=== PATIENT | female | born 1975 | race Caucasian/White ===

== ENCOUNTER 2020-01-27 12:52 | Emergency (ER) | payer OTHER, SELFPAY ==
[2020-01-27 13:00] VITALS: BP 123/78; PULSE 68; RESP 16; TEMP 36.6; O2SAT 100
--- NOTE | 2020-01-27 13:19 | ED.GENADULT ---
HPI - General Adult General Chief complaint: Eye Problems Stated complaint: eye irritation Time Seen by Provider: 01/27/20 13:19 Source: patient and RN notes reviewed Mode of arrival: ambulatory Limitations: no limitations History of Present Illness HPI narrative: 44-year-old female presents with complains of eye pain, tearing, and sensation of foreign body in right eye for 1 day. Paulette says she awaken this morning with the sensation of foreign body and irritation to RT eye. She has been rubbing and trying to locate something unsuccessful. Irrigated eye with Visine and eyewash without relief. Mild redness. Symptoms worsening throughout the day. Exacerbating factor light and rubbing eye. Relieving factors is closing eyes. Denies blurred vision, double vision, or pain of eye with movement. Wears glasses. LMP 2 weeks ago. Remains active. The patient reports she have not been diagnosed with COVID-19. The patient reports she is not waiting for the results of a COVID-19 lab test. The patient reports she do not have fever, chills, weakness, or fatigue. The patient reports she do not have a new or worsening cough or shortness of breath. Denies chest pain. The patient reports she do not have any rhinorrhea, congestion, sore throat, loss of taste, nausea, vomiting, abdominal pain, and diarrhea. Tolerating po intake well. Denies recent traveling. Denies concerns for COVID-19 or exposures been home with limited outdoor exposure except for essential household needs, work, and return home. At this time, patient is not suspected of having COVID-19.. Some parts of this dictation were generated by voice recognition software and may contain typographical and/or grammatical inaccuracies. Related Data Home Medications Medication Instructions Recorded Confirmed Klonopin 01/27/20 acetazolamide [Diamox] 250 mg PO BID 01/27/20 01/27/20 Allergies Allergy/AdvReac Type Severity Reaction Status Date / Time No Known Allergies Allergy Verified 01/27/20 13:11 Review of Systems Review of Systems: Narrative: CONSTITUTIONAL: Denies fever, chills, sweats. EYES: Denies visual changes. Complains of RT eye pain, tearing, and foreign body sensation. ENT: Denies rhinorrhea, congestion, sore throat, otalgia. CARDIOVASCULAR: Denies chest pain, palpitations, edema. RESPIRATORY: Denies dyspnea, wheezing, cough. GASTROINTESTINAL: Denies abdominal pain, nausea, vomiting, diarrhea. SKIN: Denies rash or itching. MUSCULOSKELETAL: Denies acute back pain, joint pain, or myalgia. NEUROLOGIC: Denies numbness or focal weakness. PSYCHIATRIC: Denies anxiety or depression. All systems reviewed & are unremarkable except as noted in HPI and below PMFSH Past Medical History Medical History Obese Smoker Surgical History Surgical History (Updated 01/27/20 @ 16:19 by MARIBELL Guthrie) No significant past surgical history Family History Family History (Updated 01/27/20 @ 16:20 by MARIBELL Guthrie) Father , @ age 71 of [place] Acute myocardial infarction Mother Hypertension Rheumatoid arthritis Social History Social History (Updated 01/27/20 @ 16:24 by MARIBELL Guthrie) Smoking packs per day: 0.25 Smoking cigarettes per day: 5.0 Years smoked: 31 Smoking pack-years: 7.75 Smoking status: Current every day smoker Tobacco type: cigarettes Second hand tobacco smoke exposure: No Alcohol intake: current Substance use: never Living arrangements: with family Occupation/Education: occupation Additional occupation/education comments: motor bus driver Gender identity (if verbalized by the patient): Female Comments At time of signature, I have reviewed and agree with nursing past medical, surgical, social, and family history. Please see nursing chart for further information. There is no relevant family history pertinent to the presenting complaint. Exam Narrative: Exam Narrative:
== END 2020-01-27 13:43 | disposition home or self-care (01) ==
PROVIDERS: Emergency Provider Nurse Practitioner Family; PCP Internal Medicine
DX: S05.01XA Injury of conjunctiva and corneal abrasion without foreign body, right eye, initial encounter (principal); X58.XXXA Exposure to other specified factors, initial encounter; F17.210 Nicotine dependence, cigarettes, uncomplicated; E66.9 Obesity, unspecified; Z68.41 Body mass index [BMI] 40.0-44.9, adult
CPT/HCPCS: 99213; A9270; G0463

== ENCOUNTER 2021-06-09 12:25 | Emergency (ER) | payer OTHER, SELFPAY ==
[2021-06-09 12:33] VITALS: BP 128/85; PULSE 83; RESP 16; TEMP 36.4; O2SAT 98
--- NOTE | 2021-06-09 12:42 | ED.GENADULT ---
HPI - General Adult General Chief complaint: Nausea/Vomiting/Diarrhea Stated complaint: weakness/vomiting/diarrhea Time Seen by Provider: 06/09/21 12:50 Source: patient, RN notes reviewed and old records reviewed Mode of arrival: ambulatory Limitations: no limitations History of Present Illness HPI narrative: 45 year old female who presents to [facility] care with complaints of 2 day history of feeling weak, shaky, dizzy, with some nausea, vomiting, and some diarrhea. Patient reports that she has had 2 other spells in the past 2 months where she just feels weak and shaky but they pass in about 5 minutes. Patient has history of being Bipolar and also of having pseudo-tumor cerebri with fluid on the brain and quit taking her medication 5-6 months ago without discussing this with her PCP or neurologist. Patient reports that she drank Pedialyte all day yesterday to keep herself hydrated and has been able to drink fluids and keep a [place] muffin down so far today along with some water. Patient has not had COVID or Flu vaccinations is tested weekly at her work with negative test done on Sunday. Onset (ago): day(s) (2) Related Data Home Medications Medication Instructions Recorded Confirmed Klonopin PRN 01/27/20 acetazolamide [Diamox] 250 mg PO BID 01/27/20 06/09/21 Allergies Allergy/AdvReac Type Severity Reaction Status Date / Time No Known Allergies Allergy Verified 06/09/21 12:57 Review of Systems Review of Systems: CONSTITUTIONAL: Low grade fever, no chills, or sweats. EYES: Denies visual changes, redness, or discharge. ENT: Denies rhinorrhea, congestion, sore throat, or otalgia. CARDIOVASCULAR: Denies chest pain, palpitations, or edema. RESPIRATORY: Denies cough or dyspnea. GASTROINTESTINAL: Denies abdominal pain, positive for episodes of nausea, vomiting, or diarrhea. GENITOURINARY: Denies dysuria or hematuria. SKIN: Denies rash or itching. MUSCULOSKELETAL: Denies back pain, joint pain, or myalgia. NEUROLOGIC: Denies headache, numbness,episodes of feeling weak and shaky with some dizziness. PSYCHIATRIC:Positive for history of anxiety or depression. All systems reviewed & are unremarkable except as noted in HPI and below PMFSH Past Medical History Medical History Bipolar 1 disorder Obese Pseudotumor cerebri syndrome Smoker Surgical History Surgical History No significant past surgical history Family History Family History Father , @ age 71 of [place] Acute myocardial infarction Mother Hypertension Rheumatoid arthritis Social History Social History Smoking packs per day: 0.25 Smoking cigarettes per day: 5.0 Years smoked: 31 Smoking pack-years: 7.75 Smoking status: Current every day smoker Tobacco type: cigarettes Second hand tobacco smoke exposure: No Alcohol intake: current Substance use: never Additional occupation/education comments: front end driver Gender identity (if verbalized by the patient): Female Comments At time of signature, agree with nursing past medical, surgical, social and family history. There is no relevant family history pertinent to the presenting complaint Exam Narrative: GENERAL: Well-appearing, well-nourished, and in no acute distress. HEAD: Normocephalic, atraumatic. EYES: PERRLA and EOMI.no nystagmus ENT: Nares clear, no rhinorrhea or epistaxis. Mucous membranes moist.TM's normal with good light reflex, throat normal with no lesions or exudates or tonsil swelling NECK: Supple.no lymphadenopathy CHEST: Clear to auscultation. No respiratory distress.SAO2 98% on room air HEART: Regular rate and rhythm. No murmur heard. Normal peripheral pulses. ABDOMEN: Soft, nontender to palpation, no McBurney tenderness, nondistended, normal active bowel sounds. EXTREMITIES: Normal range of motion. No
[2021-06-09 13:12] LABS: Glucose Point of Care 109 mg/dl (65-105)
== END 2021-06-09 13:30 | disposition home or self-care (01) ==
PROVIDERS: Emergency Provider Registered Nurse; PCP Internal Medicine
DX: B34.9 Viral infection, unspecified (principal); R11.2 Nausea with vomiting, unspecified; F17.210 Nicotine dependence, cigarettes, uncomplicated; E66.9 Obesity, unspecified; Z68.33 Body mass index [BMI] 33.0-33.9, adult
CPT/HCPCS: 82948; 99213; G0463

== ENCOUNTER 2021-07-17 12:25 | Emergency (ER) | payer OTHER, SELFPAY ==
[2021-07-17 12:32] VITALS: BP 133/81; PULSE 67; RESP 16; TEMP 36.7; O2SAT 100
--- NOTE | 2021-07-17 12:42 | ED.DENTAL ---
HPI - Dental/Oral General Chief complaint: Dental/Oral Stated complaint: right side facial swelling Time Seen by Provider: 07/17/21 12:32 Mode of arrival: ambulatory Limitations: no limitations History of Present Illness HPI Narrative: 45-year-old female presents with concern for right-sided facial swelling. Reports the swelling started in the cheek and has gone up towards her eye. She reports tenderness to the right cheek. She denies dental trauma or injury, reports pain when she chews or touches the area. She denies occultly swallowing, headache, fever, nausea or vomiting, vision changes, drainage from the eye. MD Complaint: tooth pain (Facial swelling) Related Data Home Medications Medication Instructions Recorded Confirmed Klonopin PRN 01/27/20 acetazolamide [Diamox] 250 mg PO BID 01/27/20 06/09/21 Allergies Allergy/AdvReac Type Severity Reaction Status Date / Time No Known Allergies Allergy Verified 07/17/21 12:30 Review of Systems Review of Systems: CONSTITUTIONAL: Denies malaise, chills, sweats, or fever. EYES: Denies visual changes, drainage from the eye ENT: Denies rhinorrhea, congestion, sinus pain, otalgia or sore throat. Reports right-sided cheek swelling, pain CARDIOVASCULAR: Denies chest pain, palpitations RESPIRATORY: Denies cough or dyspnea. SKIN: Denies rash or itching. MUSCULOSKELETAL: Denies myalgia. NEUROLOGIC: Denies numbness, weakness, or headache. All systems reviewed & are unremarkable except as noted in HPI and below PMFSH Past Medical History Medical History Bipolar 1 disorder Obese Pseudotumor cerebri syndrome Smoker Surgical History Surgical History No significant past surgical history Family History Family History Father , @ age 71 of [place] Acute myocardial infarction Mother Hypertension Rheumatoid arthritis Social History Social History Smoking packs per day: 0.25 Smoking cigarettes per day: 5.0 Years smoked: 31 Smoking pack-years: 7.75 Smoking status: Current every day smoker Tobacco type: cigarettes Second hand tobacco smoke exposure: No Alcohol intake: current Substance use: never Additional occupation/education comments: lyft driver Gender identity (if verbalized by the patient): Female Comments At time of signature, agree with nursing past medical, surgical, social and family history. There is no relevant family history pertinent to the presenting complaint Exam Narrative: GENERAL: Well-appearing, well-nourished, and in no acute distress. HEAD: Normocephalic, atraumatic. EYES: PERRLA, sclera clear, conjunctive a clear, very mild soft edema below the right eye without induration, warm ENT: Nares clear, turbinates pink, no rhinorrhea or epistaxis. Mucous membranes moist. TM pearly [place] with sharp light reflex bilaterally; no tragal tenderness. Oropharynx without erythema or lesions. Tonsils not enlarged and without exudate. No missing teeth, broken teeth. Right upper caries noted, right gumline tenderness without periapical abscess, cheek tenderness NECK: Supple. No lymphadenopathy. CHEST: No respiratory distress. Speaks in full sentences. HEART: Regular rate and rhythm. SKIN: Warm, dry, no visible rash. NEURO: Alert and oriented x3. PSYCH: Normal mood and affect Course Course Emergency Course: Discussed with the patient that source of swelling is likely dental infection, however other infection cannot be ruled out and she should follow-up promptly tomorrow with her primary care or dentist. If she has any worsening of symptoms she needs to go to the emergency room. Patient is aware of diagnosis, understands and agrees to treatment plan. Anticipatory guidance given. Patient agrees to follow-up as directed and is aware of reasons to seek care at t
== END 2021-07-17 12:45 | disposition home or self-care (01) ==
PROVIDERS: Emergency Provider Nurse Practitioner; PCP Internal Medicine
DX: K04.7 Periapical abscess without sinus (principal); F17.210 Nicotine dependence, cigarettes, uncomplicated
CPT/HCPCS: 99213; G0463